=== PATIENT | male | born 1975 | race Two or more races ===

== ENCOUNTER 2019-03-01 13:32 | Inpatient (IN) | payer SELFPAY ==
[~2019-03-01] VITALS: Ht 177.8 cm; Wt 83.6 kg
[2019-03-01] MEDS ORDERED: SODIUM CHLORIDE 0.9% 1,000 ML IV ONE ×2 (14:12→15:15)
[2019-03-01] MEDS ORDERED: TETANUS, DIPHTHERIA, PERTUSSIS VAC/PF 0.5ML (>7YR OLD) IM ONE (14:15)
[2019-03-01 14:33] LABS: CHLORIDE 100 mEq/L (98-107); PROTHROMBIN TIME 10.2 sec (9.6-11.0)
[2019-03-01 14:34] LABS: HEMATOCRIT. 36.8 % (42.0-52.0); HEMOGLOBIN. 11.7 g/dL (14.0-18.0); MEAN CORPUSCULAR HEMOGLOBIN 23.4 pg (28.0-32.0); MEAN CORPUSCULAR VOLUME 73.9 fL (80.0-94.0); MEAN PLATELET VOLUME 8.8 fl (7.4-10.4); PLATELET 132 x1000/uL (130-400); RED BLOOD CELL COUNT 4.98 mill/uL (4.7-6.1); RED CELL DISTRIBUTION WIDTH 22.6 % (11.6-14.6)
[2019-03-01 14:56] LABS: PLATELET ESTIMATE NORMAL
[2019-03-01] MEDS ORDERED: HYDROCODONE/ACETAMINOPHEN 5/325MG TABLET PO ONE (15:30)
[2019-03-01] MEDS ORDERED: ZOLPIDEM TARTRATE 5MG TABLET PO PRN (15:45)
[2019-03-01] MEDS ORDERED: KETOROLAC 15MG/ML VIAL IV PRN (15:45)
[2019-03-01] MEDS ORDERED: DOCUSATE SODIUM 100MG CAPSULE PO PRN (15:45)
[2019-03-01] MEDS ORDERED: ACETAMINOPHEN 325MG TABLET PO PRN (15:45)
[2019-03-01] MEDS ORDERED: ONDANSETRON HCL 4MG/2ML INJ IV PRN (15:45)
[2019-03-01] MEDS ORDERED: GUAIFENESIN 200MG/10ML SUGAR FREE UDC PO PRN (15:45)
[2019-03-01] MEDS ORDERED: NITROGLYCERIN 0.4MG TABLET SL SL PRN (15:45)
[2019-03-01] MEDS ORDERED: IPRATROPIUM/ALBUTEROL 0.5-3(2.5)MG/3ML NEB INH PRN (15:45)
[2019-03-01] MEDS ORDERED: POTASSIUM CHLORIDE 20MEQ TABLET SR PO NR (15:45)
[2019-03-01] MEDS ORDERED: CLONIDINE 0.1MG TABLET PO PRN (15:45)
[2019-03-01] MEDS ORDERED: MAGNESIUM/ALUMINUM HYDROXIDE/SIMETHICONE 30ML UDC PO PRN (15:45)
[2019-03-01 16:06] LABS: ETHANOL BLOOD < 10 mg/dL
[2019-03-01 16:09] LABS: LDL CHOLESTEROL 109 mg/dL (5-100)
[2019-03-01 16:12] LABS: TOTAL IRON BINDING CAPACITY 413 ug/dL (250-450)
[2019-03-01 16:15] LABS: HDL CHOLESTEROL 146 mg/dL (40-59)
[2019-03-01 16:30] LABS: FOLIC ACID (FOLATE) SERUM 16.8 ng/mL (>5.38)
[2019-03-01] MEDS ORDERED: LEVOFLOXACIN 500MG PREMIX 100 ML IV NR (17:00)
[2019-03-01] MEDS ORDERED: MVI, ADULT NO.1 10 ML, FOLIC ACID 1 MG, THIAMINE HCL 100 MG in SODIUM CHLORIDE 0.9% 1,0... IV NR ×4 (17:00)
[2019-03-01 17:23] LABS: CLARITY URINE CLEAR (CLEAR); COLOR URINE YELLOW (YELLOW); KETONES URINE NEGATIVE (NEGATIVE); LEUKOCYTE ESTERASE URINE NEGATIVE (NEGATIVE); NITRITE URINE NEGATIVE (NEGATIVE); OCCULT BLOOD URINE NEGATIVE (NEGATIVE); PROTEIN URINE 1+ (NEGATIVE); SPECIFIC GRAVITY URINE 1.014 (1.005-1.030)
[2019-03-01 17:35] LABS: *AMPHETAMINES SCREEN URINE NEGATIVE (NEGATIVE)
[2019-03-01 17:36] LABS: *BARBITURATES SCREEN URINE NEGATIVE (NEGATIVE); *BENZODIAZEPINES SCREEN URINE NEGATIVE (NEGATIVE); *COCAINE SCREEN URINE NEGATIVE (NEGATIVE); METHADONE URINE SCREEN NEGATIVE (NEGATIVE); OPIATES URINE SCREEN NEGATIVE (NEGATIVE); PHENCYCLIDINE URINE SCREEN NEGATIVE (NEGATIVE)
[2019-03-01 17:37] LABS: CANNABINOID URINE SCREEN NEGATIVE (NEGATIVE)
[2019-03-01 22:56] VITALS: BP 151/74
[2019-03-01 22:57] VITALS: BP 151/74
[2019-03-02 00:48] LABS: CREATINE KINASE 598 IU/L (39-308)
[2019-03-02 00:49] LABS: CREATINE KINASE MB FRACTION 5.9 ng/mL (0.5-3.6)
[2019-03-02 04:00] VITALS: BP 123/63
[2019-03-02 06:17] LABS: CREATINE KINASE 497 IU/L (39-308)
[2019-03-02 06:18] LABS: CREATINE KINASE MB FRACTION 4.7 ng/mL (0.5-3.6)
[2019-03-02 08:00] VITALS: BP 136/70
[2019-03-02] MEDS ORDERED: ENOXAPARIN 40MG/0.4ML SYR SUBCUT SCH (09:00)
[2019-03-02] MEDS ORDERED: PANTOPRAZOLE SODIUM 40 MG/VIAL IV SCH (09:00)
[2019-03-02 10:25] VITALS: BP 136/70
[2019-03-02] MEDS ORDERED: LEVOFLOXACIN 500MG PREMIX 100 ML IV SCH (17:00)
== END 2019-03-02 12:45 | disposition home or self-care (01) | DRG 204 ==
LOC: ER 13:32 → 6WST 15:34 → EDBEDREQTM 15:40 → EDBEDREQ 15:40 → ENRESERV 20:48 → 6WST 23:08
PROVIDERS: ADMIT Internal Medicine; ATTEND Internal Medicine
DX: R55 Syncope and collapse (principal); R56.9 Unspecified convulsions; E87.1 Hypo-osmolality and hyponatremia; D50.9 Iron deficiency anemia, unspecified; E87.6 Hypokalemia; F10.10 Alcohol abuse, uncomplicated; R74.0 Nonspecific elevation of levels of transaminase and lactic acid dehydrogenase [LDH]
CPT/HCPCS: 36415; 71045; 80061; 80305; 80320; 82550; 82553; 82607; 82746; 82962; 83036; 83540; 83550; 83605; 83880; 84484; 90471; 90715; 93005; 93970; 96361; 96365; 99285; C9113; J1650; J1956; J3411; J3490; J7030; G0480